=== PATIENT | male | born 1970 ===

== ENCOUNTER 2020-12-07 07:24 | Emergency (ER) | payer OTHER ==
[~2020-12-07] VITALS: Ht 180.3 cm; Wt 128.9 kg
--- NOTE | 2020-12-07 07:43 | ED.ADGEN ---
General Adult HPI: HPI: Patient is a 50 year old male coming in via EMS from work at the [employer]. Patient had a witnessed cardiac arrest. CPR was immediately initiated and prior to EMS arrival he was defibrillated with her AED. On EMS arrival he was in V. fib. Has received a total of 4 defibrillations. No meds given. Unknown history but patient is awake moaning and answering yes or no questions on arrival. Patient denies any pain or feeling ill before he went to work. Review of Systems: Review of Systems: All other systems within normal limits except for as noted in the HPI Current Medications: Current Medications Medications (Trade) Dose Ordered Sig/Jayesh Start Time Stop Time Status Last Admin Dose Admin Amiodarone HCl 150 mg/Dextrose 103 ml @ 618 mls/hr 1X ONCE 12/07/20 07:45 12/07/20 07:54 DC 12/07/20 07:45 618 MLS/HR Amiodarone HCl 450 mg/Dextrose 259 ml @ 34.533 mls/ hr CONT PRN 12/07/20 07:45 12/08/20 07:33 12/07/20 08:12 34.533 MLS/HR Dopamine HCl/ Dextrose 250 ml @ 24.169 mls/ hr 1X ONCE 12/07/20 10:15 12/07/20 20:35 Epinephrine HCl 5 mg/Sodium Chloride 255 ml @ 39.443 mls/ hr 1X ONCE 12/07/20 09:15 12/07/20 15:42 12/07/20 09:15 276.104 MLS/HR Heparin Sodium (Porcine) (Heparin Sodium) 4,000 unit 1X ONCE 12/07/20 10:00 12/07/20 10:01 DC 12/07/20 09:51 4,000 UNIT Heparin Sodium/ Sodium Chloride (HEPARIN for ARTERIAL LINE FLUSH) 1,000 unit 1X ONCE 12/07/20 09:15 12/07/20 09:16 DC 12/07/20 09:15 1,000 UNIT Info (CONTRAST GIVEN -- Rx MONITORING) 1 each PRN DAILY PRN 12/07/20 09:15 12/09/20 09:14 Iodixanol (Visipaque 320) 100 ml 1X ONCE 12/07/20 09:15 12/07/20 09:16 DC 12/07/20 09:42 113 ML Lidocaine HCl (Lidocaine 1% 20ml Vial) 20 ml 1X ONCE 12/07/20 09:15 12/07/20 09:16 DC Midazolam HCl (Versed) 5 mg 1X ONCE 12/07/20 09:15 12/07/20 09:16 DC Ondansetron HCl (Zofran) 4 mg 1X ONCE 12/07/20 08:00 12/07/20 08:01 DC Phenylephrine HCl (PHENYLEPHRINE in 0.9% NACL PF) 0.1 mg 1X ONCE 12/07/20 09:30 12/07/20 09:31 DC 12/07/20 09:30 0.8 MG Sodium Chloride 500 ml @ 500 mls/hr 1X ONCE 12/07/20 08:15 12/07/20 09:14 DC Allergies: Allergies: Allergies Coded Allergies Type Severity Reaction Last Updated Verified No Known Drug Allergies 12/07/20 No Physical Exam: PE: Constitutional: Well developed, well nourished, ill-appearing [] HENT: Normocephalic, atraumatic, bilateral external ears normal, nose normal. [] Eyes: PERRLA, conjunctiva normal, no discharge. [] Neck: No rigidity, supple, no stridor. [] Cardiovascular: Regular rate and rhythm, brisk cap refill [] Lungs & Thorax: Non labored symmetric respirations, no tachypnea or respiratory distress. Symmetric radial pulse [] Abdomen: Soft, nondistended. Skin: Warm, dry, no erythema, no rash. Diaphoretic, clammy [] Back: Unremarkable Extremities: No deformities, range of motion grossly intact, no lower extremity edema [] Neurologic: Alert and answering questions. [] Psychologic: Affect normal, judgement normal, mood normal. [] Current Patient Data: Labs: Laboratory Tests Test 12/07/20 07:30 12/07/20 07:42 12/07/20 08:25 12/07/20 09:00 White Blood Count 12.1 x10^3/uL (4.0-11.0) H Red Blood Count 4.43 x10^6/uL (4.30-5.70) Hemoglobin 13.5 g/dL (13.0-17.5) Hematocrit 41.4 % (39.0-53.0) Mean Corpuscular Volume 93 fL (79-100) Mean Corpuscular Hemoglobin 31 pg (25-35) Mean Corpuscular Hemoglobin Concent 33 g/dL (31-37) Red Cell Distribution Width 13.3 % (11.5-14.5) Platelet Count 266 x10^3/uL (140-400) Neutrophils (%) (Auto) 50 % (31-73) Lymphocytes (%) (Auto) 41 % (24-48) Monocytes (%) (Auto) 6 % (0-9) Eosinophils (%) (Auto) 2 % (0-3) Basophils (%) (Auto) 1 % (0-3) Neutrophils # (Auto) 6.1 x10^3/uL (1.8-7.7) Lymphocytes # (Auto) 5.0 x10^3/uL (1.0-4.8) H Monocytes # (Auto) 0.7 x10^3/uL (0.0-1.1) Eosinophils # (Auto) 0.2 x10^3/uL (0.0-0.7) Basophils # (Auto) 0.1 x10^3/uL (0.0-0.2) Prothrombin Time 12.9 SEC (11.7-14.0) Prothrombin Time INR 1.0 (0.8-1.1) Sodium Level 137 mmol/L (136-145) Potassium Level 5.0 mmol/L (3.5-5.1) Chloride Level 100 mmol/L (98-107) Carbon Dioxide Level 17 mmol/L (21-32) L Anion Gap 20 (6-14) H Blood Urea Nitrogen 45 mg/dL (8-26) H Creatinine 2.3 mg/dL (0.7-1.3) H Estimated GFR (Cockcroft-Gault) 30.5 BUN/Creatinine Ratio 20 (6-20) Glucose Level 363 mg/dL (70-99) H Lactic Acid Level 8.7 mmol/L (0.4-2.0) *H Calcium Level 8.5 mg/dL (8.5-10.1) Phosphorus Level 6.1 mg/dL (2.6-4.7) H Magnesium Level 2.0 mg/dL (1.8-2.4) Total Bilirubin 0.5 mg/dL (0.2-1.0) Aspartate Amino Transferase (AST) 209 U/L (15-37) H Alanine Aminotransferase (ALT) 309 U/L (16-63) H Alkaline Phosphatase 50 U/L (46-116) Troponin I Quantitative < 0.017 ng/mL (0.000-0.055) LM-Cqa-J-Type Natriuretic Peptide 437 pg/mL (0-124) H Total Protein 7.1 g/dL (6.4-8.2) Albumin 3.7 g/dL (3.4-5.0) Albumin/Globulin Ratio 1.1 (1.0-1.7) Ethyl Alcohol Level < 10 mg/dL (0-10) Glucose (Fingerstick) 373 mg/dL (70-99) H SARS-CoV-2 Antigen (Rapid) Negative (NEGATIVE) O2 Saturation 63 % (92-99) *L Arterial Blood pH 6.88 (7.35-7.45) *L Arterial Blood pCO2 at Patient Temp 85 mmHg (35-46) *H Arterial Blood pO2 at Patient Temp 55 mmHg (75-108) L Arterial Blood HCO3 16 mmol/L (21-28) L Arterial Blood Base Excess -19 mmol/L (-3-3) L Oxyhemoglobin 63.0 % Methemoglobin 0.4 % (0.0-1.9) Carbon Monoxide, Quantitative 0.3 % (0.0-1.9) FiO2 100% bagging Laboratory Tests 12/07/20 07:30 Laboratory Tests 12/07/20 07:30 Vital Signs: Vital Signs Date Time Temp Pulse Resp B/P (MAP) Pulse Ox O2 Delivery O2 Flow Rate FiO2 12/07/20 09:15 86 Ventilator 12/07/20 07:58 108 22 181/82 (115) 15.0 12/07/20 07:27 97.5 97.5 EKG: EKG: Sinus tachycardia, heart rate 119 bpm, left axis deviation, upright T waves in V1, inverted T waves in aVL. Concerning for ischemic changes [] Heart Score: C/O Chest Pain: N/A Risk Factors: Risk Factors: DM, Current or recent (<one month) smoker, HTN, HLP, family history of CAD, obesity. Risk Scores: Score 0 - 3: 2.5% MACE over next 6 weeks - Discharge Home Score 4 - 6: 20.3% MACE over next 6 weeks - Admit for Clinical Observation Score 7 - 10: 72.7% MACE over next 6 weeks - Early Invasive Strategies Radiology/Procedures: Radiology/Procedures: [facility] [address] [place] [address] IMAGING REPORT Signed PATIENT: Rohit Bullock ACCOUNT: [id number] : 1970 LOCATION: ER AGE: 50 SEX: M EXAM STATUS: PRE ER ORD. PHYSICIAN: PADMAJA HUMPHREY MD REASON: cardiac arrest PROCEDURE: CHEST AP ONLY XR CHEST 1V History: Cardiac arrest Comparison: None. Technique: Portable AP radiograph of the chest. Findings: Adequate inflation. Upper lobe predominant perihilar hazy opacities. No pleural effusion or pneumothorax. Cardiomediastinal silhouette is normal in size. Osseous structures and soft tissues are unremarkable. Impression: 1. Bilateral hazy opacities with perihilar predominance likely represent edema. Multifocal infection is not excluded. Electronically signed by: Jarvis Wilkins MD (12/07/2020 8:27 AM) [id number] DICTATED and SIGNED BY: JARVIS WILKINS MD DATE: 12/07/20 [id number] [] Course & Med Decision Making: Course & Med Decision Making Pertinent Labs and Imaging studies reviewed. (See chart for details) Patient and sinus tachycardia on arrival answering questions and denies any chest pains. Consult to cardiology due to ischemic changes on EKG but no STEMI at this time. Patient started on amiodarone bolus and drip to prevent further episodes. Patient vital signs otherwise stable other than tachycardia. Patient had about 1/32 run of V. tach before spontaneously converting back to si nus tachycardia. Patient then had repeat of his V. tach without pulses. CPR was initiated. Patient was given another bolus of amiodarone and was defibrillated. Patient V. tach on the monitor (see nursing notes for details) patient had numerous rounds of epi and defibrillation, also was given sodium bicarb and calcium. ROSC was achieved twice and on the second episode cardiology and Heating Repair Technician were present to lr patient to Heating Repair Technician. Patient was initially admitted but had not been on the floor of the bed. In the Heating Repair Technician patient coded 4-5 more times. Cardiology attempted to balloon a pro ximal and distal LAD occlusion. The code was called in the Heating Repair Technician and patient was brought back to the ER for family to see. Patient's primary care provider was contacted who will sign .. Family is declining autopsy. [] Total critical care time: 75 The time involved in the performance of separately reportable/billable procedures was not counted toward critical care time. Due to a high probability of clinically significant, life-threatening deterioration the patient required a high level of care to intervene emergently and I personally spent this critical time directly and personally managing the patient. The critical care time included obtaining a history, examination of the patient, assessment of vital signs, ordering and review of studies, arranging urgent treatment with development of a management plan, evaluation of patient's response to treatment, frequent reassessment, and discussions with other providers and/or family members. Jax Disclaimer: Dragdima Disclaimer: This electronic medical record was generated, in whole or in part, using a voice recognition dictation system. Departure Departure Impression: Primary Impression: Cardiac arrest Disposition: 20 Condition: PADMAJA HUMPHREY MD Dec 07, 2020 07:43
[2020-12-07] MEDS ORDERED: AMIODARONE 450 MG in IV DEXTROSE 5% 250 ML IV PRN (07:45)
[2020-12-07] MEDS ORDERED: AMIODARONE 150 MG in IV DEXTROSE 5% 100ML 100 ML IV ONE (07:45)
[2020-12-07] MEDS ORDERED: ONDANSETRON PF 4 MG/2 ML VIAL. IVP ONE ×2 (07:45→08:00)
[2020-12-07 07:58] VITALS: BP 181/82
[2020-12-07 08:00] LABS: CALCIUM 8.5 mg/dL (8.5-10.1); CREATININE 2.3 mg/dL (0.7-1.3); GFR 30.5
[2020-12-07] MEDS ORDERED: EPINEPHrine SYRINGE 1 MG/10 ML SYRINGE ONE ×2 (08:00→09:00)
[2020-12-07] MEDS ORDERED: LIDOCAINE 2% 100 MG/5 ML SYRINGE. ONE (08:00)
[2020-12-07] MEDS ORDERED: CALCIUM CHLORIDE 1,000 MG/10 ML DISP.SYRIN ONE (08:00)
[2020-12-07] MEDS ORDERED: MIDAZOLAM HCL/PF 5 MG/5 ML VIAL. ONE (08:00)
[2020-12-07] MEDS ORDERED: SODIUM BICARB ADULT 8.4% 50 MEQ/50 ML DISP.SYRIN. ONE (08:00)
[2020-12-07] MEDS ORDERED: AMIODARONE 150 MG/3 ML VIAL ONE (08:00)
[2020-12-07 08:05] LABS: BASO # 0.1 x10^3/uL (0.0-0.2); BASO % 1 % (0-3); EOS # 0.2 x10^3/uL (0.0-0.7); EOS % 2 % (0-3); HEMATOCRIT 41.4 % (39.0-53.0); HEMOGLOBIN 13.5 g/dL (13.0-17.5); LYMPH % 41 % (24-48); MEAN CORPUSCULAR HEMOGLOBIN 31 pg (25-35); MEAN CORPUSCULAR HGB CONC 33 g/dL (31-37); MEAN CORPUSCULAR VOLUME 93 fL (79-100); MONO # 0.7 x10^3/uL (0.0-1.1); MONO % 6 % (0-9); NEUT # 6.1 x10^3/uL (1.8-7.7); NEUT % 50 % (31-73); PLATELET COUNT 266 x10^3/uL (140-400); RED BLOOD COUNT 4.43 x10^6/uL (4.30-5.70); RED CELL DISTRIBUTION WIDTH 13.3 % (11.5-14.5); WHITE BLOOD COUNT 12.1 x10^3/uL (4.0-11.0)
[2020-12-07 08:06] LABS: ALBUMIN 3.7 g/dL (3.4-5.0); ALBUMIN/GLOBULIN RATIO 1.1 (1.0-1.7); PHOSPHORUS 6.1 mg/dL (2.6-4.7); TOTAL BILIRUBIN 0.5 mg/dL (0.2-1.0); TOTAL PROTEIN 7.1 g/dL (6.4-8.2)
--- NOTE | 2020-12-07 08:06 | EKG ---
[facility] [address] [place] [address] Test Date: 2020-12-07 Test Time: 07:37:45 Pat Name: Rohit Bullock Department: Room: Gender: M Supervisor Roving: : 1970 Requested By: PADMAJA HUMPHREY Order Number: [id number] Reading MD: Measurements Intervals [place] Rate: 119 P: -3 AZ: 214 QRS: -24 QRSD: 98 T: 119 QT: 294 QTc: 414 Interpretive Statements SINUS TACHYCARDIA ATRIAL PREMATURE COMPLEX(ES) PROLONGED [place] INTERVAL LEFTWARD AXIS CONSIDER LEFT VENTRICULAR HYPERTROPHY ST ABNORMALITY, POSSIBLE LATERAL SUBENDOCARDIAL INJURY ABNORMAL ECG RI6.02 No previous ECG available for comparison
[2020-12-07] MEDS ORDERED: IV NORMAL SALINE 500ML BAG 500 ML IV ONE (08:15)
[2020-12-07 08:20] LABS: PROTHROMBIN TIME PATIENT 12.9 SEC (11.7-14.0)
[2020-12-07] MEDS ORDERED: IODIXANOL 320 MG/ML 100 ML VIAL. ONE (08:20)
[2020-12-07] MEDS ORDERED: HEPARIN for ARTERIAL LINE 1,500 ML ONE (08:20)
--- NOTE | 2020-12-07 08:30 | RAD ---
XR CHEST 1V History: Cardiac arrest Comparison: None. Technique: Portable AP radiograph of the chest. Findings: Adequate inflation. Upper lobe predominant perihilar hazy opacities. No pleural effusion or pneumotho rax. Cardiomediastinal silhouette is normal in size. Osseous structures and soft tissues are unremark able. Impression: 1. Bilateral hazy opacities with perihilar predominance likely represent edema. Multifocal infection is not excluded. Electronically signed by: Jarvis Huff MD (12/07/2020 8:27 AM) [id number]
[2020-12-07] MEDS ORDERED: LIDOCAINE 1% Multi-Dose 20 ML VIAL. ONE (08:40)
[2020-12-07] MEDS ORDERED: HEPARIN SODIUM 10,000 UNIT/10 ML VIAL. ONE (09:00)
[2020-12-07] MEDS ORDERED: PHENYLEPHRINE in 0.9% NACL PF 1 MG/10 ML SYRINGE. IV ONE ×2 (09:07→09:30)
[2020-12-07] MEDS ORDERED: LIDOCAINE 1% Multi-Dose 20 ML VIAL. INJ ONE (09:15)
[2020-12-07] MEDS ORDERED: EPINEPHrine VIAL 5 MG in IV NORMAL SALINE 250ML 250 ML IV ONE (09:15)
[2020-12-07] MEDS ORDERED: MIDAZOLAM HCL/PF 5 MG/5 ML VIAL. IV ONE (09:15)
[2020-12-07] MEDS ORDERED: CONTRAST GIVEN. MC PRN (09:15)
[2020-12-07] MEDS ORDERED: IODIXANOL 320 MG/ML 100 ML VIAL. IART ONE (09:15)
[2020-12-07 09:43] LABS: BASE EXCESS COOX -19 mmol/L (-3-3); HCO3 COOX 16 mmol/L (21-28); PCO2 COOX 85 mmHg (35-46); PO2 COOX 55 mmHg (75-108)
[2020-12-07 09:44] LABS: SAT O2 COOX 63 % (92-99)
[2020-12-07 09:45] LABS: METHEMOGLOBIN 0.4 % (0.0-1.9)
[2020-12-07] MEDS ORDERED: HEPARIN for IV BOLUS 10,000 UNIT/10 ML VIAL. IV ONE (10:00)
--- NOTE | 2020-12-07 17:58 | CARD ---
MR#: [id number] Date of Study: 12/07/2020 Ordering Physician: JOSE LUIS MARIN, Referring Physician: JOSE LUIS MARIN, Tech: RT Mehdi(R) APPROVED REPORT Technologist: Kristi Dietz RT(R) Nurse: Latha Hendrix RN Procedure(s) performed: FL TIME: 8.3 MINS DOSE: 95 GYCM2 CONTRAST: 113 ML HEART FAILURE CLASS 4 LHC, Coronary angigoraphy, Complex PCI of the LM/LAD [facility] Clinical Frailty Scale [facility] Clinical Frailty Scale: Severely Frail Heart Failure Heart Failure: Yes If Yes, Newly Diagnosed: Yes If Yes, HF Type: Diastolic Systolic CASE TECHNIQUE During this case, Fluoroscopy and low osmolar contrast were used for imaging. Specimen(s) Removed: N/ A Estimated Blood loss: 30 cc's. PROCEDURE NARRATIVE Clinical information: 50-year-old male presented to the hospital in the setting of cardiac arrest at his place of work at [employer]. Upon arrival to the ER the patient was stabilized and did not require intubation. He was being evaluated when after a few minutes had another episode of cardiac arrest requiring intub ation and subsequent initiation of CPR therapies. Several minutes of CPR was performed and the patie nt was ultimately able to have a sustained pulse for a few minutes during which transferred from the ER to the Sc[facility] Diving [facility] was initiated for emergent cardiac catheterization. Verbal informed consent was o btained from the patient's family given the emergency situation. Prior to arrival to the [facility] the patient had already been receiving multiple rounds of CPR, requi ring vasopressors and in extremis. This was an attempt at salvage PCI. Procedure details: After arrival to the [facility] the patient quickly was placed on the table and the right and left groi ns were prepped and draped in usual sterile fashion. Due to the lack of a palpable pulse CPR was heather nitiated and patient temporarily regained a pulse although the blood pressure was undetectable by cuf f. Under ultrasound guidance a 6 [place] sheath was placed in the left common femoral artery. Next l imited diagnostic angiography was performed with a 6 [place] JL4 and JR4 catheters. Again towards the end of the diagnostic coronary angiography patient required multiple rounds of CPR. Findings: Aorta 60/30 LVEDP 25 mmHg Coronary angiography: Left main is a large-caliber vessel with a distal calcific and thrombotic occlusion involving the ost ium of the LAD and circumflex LAD is a moderate caliber vessel with an ostial 80% stenosis and proximal thrombus. Left circumflex is a moderate caliber vessel with an ostial 80% stenosis. RCA is a moderate to large caliber dominant vessel with mild diffuse irregularities of up to 50%. RPDA and RPL are small caliber vessels with moderate diffuse disease. Interventional technique: In the midst of continued CPR an attempt was made to salvage myocardium with a PCI. Heparin is used for anticoagulation. Through a 6 [place] EBU 3.5 guide catheter a [place]ater wire was placed in the LAD and in the high obtuse marginal branch. Balloon angioplasty was performed with a 2.5 x 12 and 3.0 x 15 mm balloons extending from the left main into the LAD. Flow was initially able to be improved in to the LAD and circumflex systems. Unfortunately, the patient continued to deteriorate into cardioge eliceo shock and despite aggressive vasopressor support had PEA arrest. Due to lack of a sustained puls e further intervention was deferred. At case completion the family was notified and the chairman president and chief executive officer was also notified. TRACY Flow TRACY Flow (Pre-Intervention): TRACY-1 TRACY Flow (Post-Intervention): TRACY-0 Conclusion 1. Cardiac arrest most likely secondary to severe ischemic cardiomyopathy and left main coronary art dave disease Signed by : Jose Luis Marin, Electronically Approved : 12/07/2020 17:57:23
== END 2020-12-07 11:50 ==
LOC: ER 07:24
DX: I46.9 Cardiac arrest, cause unspecified (principal); Z20.822 Contact with and (suspected) exposure to COVID-19; I49.01 Ventricular fibrillation; R00.0 Tachycardia, unspecified
CPT/HCPCS: 36415; 36600; 71045; 76937; 80053; 82805; 82962; 83605; 83735; 83880; 84100; 84484; 85025; 85610; 87426; 92920; 92950; 93005; 93458; 96365; 96366; 96367; 96375; 99291; 99292; C1725; C1769; C1887; C1894; G0480; J0171; J0282; J1644; J2250; J2370; J2405; J3490; J7050; J7060; Q9967; U0003; U0005; 94002; J7030